=== PATIENT | female | born 1950 | race Caucasian/White ===

== ENCOUNTER 2018-01-18 05:57 | Day surgery (SDC) | payer MEDICARE, OTHER ==
[~2018-01-18] VITALS: Ht 167.6 cm; Wt 75.4 kg
[2018-01-18] MEDS ORDERED: LACTATED RINGERS 1,000 ML IV SCH (06:50)
[2018-01-18] MEDS ORDERED: ASPI-496 PO (07:01)
[2018-01-18] MEDS ORDERED: D-MA50PO PO (07:01)
[2018-01-18] MEDS ORDERED: TURM1POW PO (07:01)
[2018-01-18] MEDS ORDERED: ROSU10TA PO (07:01)
[2018-01-18] MEDS ORDERED: FISH1CAP PO (07:01)
[2018-01-18] MEDS ORDERED: CALC200T3 PO (07:01)
[2018-01-18] MEDS ORDERED: ASCO500C10 PO (07:01)
[2018-01-18] MEDS ORDERED: ALPH300C PO (07:01)
[2018-01-18] MEDS ORDERED: CHOL2400 PO (07:01)
[2018-01-18 07:03] VITALS: BP 165/87
[2018-01-18 07:53] LABS: BASOPHILS # (AUTO) 0.03 x10^3/uL (0-0.1); BASOPHILS % (AUTO) 1 % (0-1); EOSINOPHILS % (AUTO) 2 % (1-7); LYMPHOCYTES # (AUTO) 1.04 x10^3/uL (1-3.4); LYMPHOCYTES % (AUTO) 19 % (22-44); MD NO; MEAN CORPUSCULAR HEMOGLOBIN 30.6 pg (27.0-34.8); MEAN CORPUSCULAR HGB CONC 33.7 g/dL (32.4-35.8); MEAN CORPUSCULAR VOLUME 90.5 fL (80-100); MEAN PLATELET VOLUME 9.7 fL (7.4-10.4); MONOCYTES % (AUTO) 7 % (2-9); NEUTROPHILS # (AUTO) 3.93 x10^3/uL (1.8-6.8); NEUTROPHILS % (AUTO) 72 % (42-75); PLATELET COUNT 223 x10^3/uL (130-400); RED BLOOD COUNT 4.65 x10^6/uL (3.82-5.3); RED CELL DISTRIBUTION WIDTH 13.3 % (9.6-15.2)
[2018-01-18 08:02] LABS: ANION GAP 6 mmol/L (5-15); CALCIUM 9.2 mg/dL (8.5-10.1); CHLORIDE 111 mmol/L (98-107); CREATININE 0.66 mg/dL (0.55-1.02)
[2018-01-18] MEDS ORDERED: ONDANSETRON 2MG/ML, 2ML ONE (08:04)
[2018-01-18] MEDS ORDERED: PROPOFOL 10 MG/ML, 20ML ONE (08:04)
[2018-01-18] MEDS ORDERED: LIDOCAINE-MPF 2% ,5ML ONE (08:04)
[2018-01-18] MEDS ORDERED: CHLORHEXIDINE 15 ML UDC ONE (08:23)
[2018-01-18] MEDS ORDERED: OXYcodone 5 MG/5 ML ORAL.SOL UDC PO PRN (09:00)
[2018-01-18] MEDS ORDERED: ONDANSETRON ODT 8 MG PO PRN (09:00)
[2018-01-18] MEDS ORDERED: MIDAZOLAM 1 MG/ML, 2ML IV PRN (09:00)
[2018-01-18] MEDS ORDERED: FENTANYL PF 100 MCG/2ML IV PRN (09:00)
[2018-01-18] MEDS ORDERED: hydrALAzine 20 MG/ML, 1ML IV PRN (09:00)
[2018-01-18] MEDS ORDERED: HYDROmorphone 1 MG/ML, 1ML IV PRN (09:00)
[2018-01-18] MEDS ORDERED: LORazepam 2 MG/ML, 1ML IVPush PRN (09:00)
[2018-01-18] MEDS ORDERED: MEPERIDINE/PF 25MG/0.5ML IVPush PRN (09:00)
[2018-01-18] MEDS ORDERED: PROMETHAZINE 25 MG/ML, 1ML IV PRN (09:00)
[2018-01-18] MEDS ORDERED: ALBUTEROL SULFATE 2.5 MG/3 ML NPPB PRN (09:00)
[2018-01-18] MEDS ORDERED: LABETALOL 5MG/ML, 20ML IV PRN (09:00)
[2018-01-18] MEDS ORDERED: PROMETHAZINE 12.5 MG SUPP PR PRN (09:00)
[2018-01-18] MEDS ORDERED: ONDANSETRON 2MG/ML, 2ML IV PRN (09:00)
[2018-01-19] MEDS ORDERED: TRAM50TA2 PO (14:22)
[2018-01-19] MEDS ORDERED: CEFD300C37 PO (14:22)
== END 2018-01-18 10:10 | disposition home or self-care (01) ==
LOC: OUT 05:57
PROVIDERS: ATTEND Internal Medicine Gastroenterology
DX: C82.83 Other types of follicular lymphoma, intra-abdominal lymph nodes (principal); E78.5 Hyperlipidemia, unspecified; Z98.890 Other specified postprocedural states; Z79.82 Long term (current) use of aspirin; Z79.899 Other long term (current) drug therapy; Z87.440 Personal history of urinary (tract) infections
CPT/HCPCS: 36415; 43238; 80048; 85025; 88172; 88173; 88177; 88305; 93005; J2405; J2704; J3490; J7120; 88341; 88342; 88360; G0461

== ENCOUNTER 2018-01-18 14:48 | Inpatient (IN) | payer MEDICARE, OTHER ==
[~2018-01-18] VITALS: Ht 170.2 cm; Wt 77.6 kg
[~2018-01-18 14:48] MED LIST: ALPH300C PO; ASCO500C10 PO; ASPI-496 PO; CALC200T3 PO; CHOL2400 PO; D-MA50PO PO; FISH1CAP PO; ROSU10TA PO; TURM1POW PO
[2018-01-18] MEDS ORDERED: ONDANSETRON 2MG/ML, 2ML IVPush ONE ×2 (15:00→16:30)
[2018-01-18] MEDS ORDERED: SODIUM CHLORIDE FLUSH 10ML SYR IVF ONE (15:00)
[2018-01-18] MEDS ORDERED: SODIUM CHLORIDE 0.9% 1,000ML IVBOLUS ONE (15:30)
[2018-01-18 15:31] LABS: CULTURE INDICATED? YES; MICROSCOPIC INDICATED
[2018-01-18 15:37] LABS: MEAN CORPUSCULAR HEMOGLOBIN 30.2 pg (27.0-34.8); MEAN CORPUSCULAR HGB CONC 33.4 g/dL (32.4-35.8); MEAN CORPUSCULAR VOLUME 90.4 fL (80-100); MEAN PLATELET VOLUME 9.6 fL (7.4-10.4); PLATELET COUNT 235 x10^3/uL (130-400); RED BLOOD COUNT 4.46 x10^6/uL (3.82-5.3); RED CELL DISTRIBUTION WIDTH 13.6 % (9.6-15.2)
[2018-01-18 15:38] LABS: ALANINE AMINOTRANSFERASE 31 U/L (12-78); ALBUMIN 4.4 g/dL (3.4-5.0); ANION GAP 12 mmol/L (5-15); CALCIUM 9.5 mg/dL (8.5-10.1); CHLORIDE 107 mmol/L (98-107); CREATININE 0.73 mg/dL (0.55-1.02)
[2018-01-18] MEDS ORDERED: HYDROmorphone 2 MG/ML, 1ML ONE (15:39)
[2018-01-18 15:40] LABS: ALKALINE PHOSPHATASE 60 U/L (45-117); BILIRUBIN,TOTAL 0.8 mg/dL (0.2-1.0); TOTAL PROTEIN 7.8 g/dL (6.4-8.2)
[2018-01-18] MEDS ORDERED: ONDANSETRON 2MG/ML, 2ML ONE (15:41)
[2018-01-18] MEDS ORDERED: HYDROmorphone 1 MG/ML, 1ML IV ONE (16:00)
[2018-01-18] MEDS ORDERED: OMNIPAQUE 350 MG/ML, 100ML BOTTLE ONE (16:09)
[2018-01-18 16:15] LABS: MD SCAN
[2018-01-18] MEDS ORDERED: ONDANSETRON ODT 4 MG PO PRN (18:30)
[2018-01-18] MEDS ORDERED: ONDANSETRON 2MG/ML, 2ML IVPush PRN (18:30)
[2018-01-18 18:35] VITALS: BP 143/85
[2018-01-18] MEDS ORDERED: MORPHINE SULFATE 4 MG/ML, 1ML IVPush PRN (19:00)
[2018-01-18] MEDS ORDERED: CEFTRIAXONE 2,000 MG in DEXTROSE 5% 50 ML IV SCH (19:00)
[2018-01-18 19:15] VITALS: BP 143/85
[2018-01-18] MEDS ORDERED: POTASSIUM CHLORIDE 20 MEQ TAB.ER.PRT PO ONE (19:30)
[2018-01-18] MEDS: SODIUM CHLORIDE 0.9% 1,000 ML IV SCH (20:23)
[2018-01-18 21:28] LABS: INTERNATIONAL NORMALIZED RATIO 1.02 (0.93-1.1); PROTHROMBIN TIME 10.5 Seconds (9.6-11.5)
[2018-01-19 01:04] VITALS: BP 117/65
[2018-01-19] MEDS: SODIUM CHLORIDE 0.9% 1,000 ML IV SCH (04:53)
[2018-01-19 05:26] LABS: ANION GAP 5 mmol/L (5-15); CALCIUM 8.7 mg/dL (8.5-10.1); CHLORIDE 110 mmol/L (98-107)
[2018-01-19 05:27] LABS: MEAN CORPUSCULAR HEMOGLOBIN 31.5 pg (27.0-34.8); MEAN CORPUSCULAR HGB CONC 34.3 g/dL (32.4-35.8); MEAN CORPUSCULAR VOLUME 91.8 fL (80-100); MEAN PLATELET VOLUME 10.3 fL (7.4-10.4); PLATELET COUNT 215 x10^3/uL (130-400); RED BLOOD COUNT 3.86 x10^6/uL (3.82-5.3); RED CELL DISTRIBUTION WIDTH 13.6 % (9.6-15.2)
[2018-01-19 05:28] LABS: CREATININE 0.68 mg/dL (0.55-1.02)
[2018-01-19 05:59] LABS: BASOPHILS # (AUTO) 0.03 x10^3/uL (0-0.1); BASOPHILS % (AUTO) 0 % (0-1); EOSINOPHILS % (AUTO) 0 % (1-7); LYMPHOCYTES # (AUTO) 1.26 x10^3/uL (1-3.4); LYMPHOCYTES % (AUTO) 12 % (22-44); MD SCAN; MONOCYTES % (AUTO) 7 % (2-9); NEUTROPHILS # (AUTO) 8.77 x10^3/uL (1.8-6.8); NEUTROPHILS % (AUTO) 81 % (42-75)
[2018-01-19 08:05] VITALS: BP 114/67
[2018-01-19 14:07] VITALS: BP 118/64
[2018-01-19] MEDS ORDERED: TRAM50TA2 PO (14:22)
[2018-01-19] MEDS ORDERED: CEFD300C37 PO (14:22)
== END 2018-01-19 17:56 | disposition home or self-care (01) | DRG 920 ==
LOC: ED 16:07 → EDIP 17:32 → 3NW 18:32
PROVIDERS: ADMIT Internal Medicine; ATTEND Internal Medicine
DX: L76.22 Postprocedural hemorrhage of skin and subcutaneous tissue following other procedure (principal); N39.0 Urinary tract infection, site not specified; C85.10 Unspecified B-cell lymphoma, unspecified site; E87.2 Acidosis; R59.0 Localized enlarged lymph nodes; E78.00 Pure hypercholesterolemia, unspecified; E87.6 Hypokalemia; R73.9 Hyperglycemia, unspecified; E78.5 Hyperlipidemia, unspecified; Z82.49 Family history of ischemic heart disease and other diseases of the circulatory system; Z90.89 Acquired absence of other organs; Y92.9 Unspecified place or not applicable; Y83.9 Surgical procedure, unspecified as the cause of abnormal reaction of the patient, or of later complication, without mention of misadventure at the time of the procedure
CPT/HCPCS: 36415; 71045; 74177; 80048; 80053; 81001; 83690; 83735; 84100; 85018; 85025; 85610; 87086; 96361; 96374; 96375; 96376; J0696; J1170; J2405; Q9967; J7030

== ENCOUNTER 2018-02-22 09:27 | Observation (INO) | payer MEDICARE, OTHER ==
[~2018-02-22] VITALS: Ht 167.6 cm; Wt 75.2 kg
[~2018-02-22 09:27] MED LIST changes: +CEFD300C37 PO; +TRAM50TA2 PO
[2018-02-22] MEDS: MORPHINE SULFATE 4 MG/ML, 1ML IVPush PRN ×3 (11:37→14:03)
[2018-02-22 11:54] LABS: MEAN CORPUSCULAR HEMOGLOBIN 30.2 pg (27.0-34.8); MEAN CORPUSCULAR HGB CONC 33.6 g/dL (32.4-35.8); MEAN PLATELET VOLUME 9.1 fL (7.4-10.4); PLATELET COUNT 258 x10^3/uL (130-400); RED BLOOD COUNT 4.15 x10^6/uL (3.82-5.3); RED CELL DISTRIBUTION WIDTH 13.6 % (9.6-15.2)
[2018-02-22 11:57] LABS: ALANINE AMINOTRANSFERASE 38 U/L (12-78); ANION GAP 9 mmol/L (5-15); CALCIUM 9.3 mg/dL (8.5-10.1); CHLORIDE 106 mmol/L (98-107); CREATININE 0.79 mg/dL (0.55-1.02)
[2018-02-22 12:01] LABS: ALKALINE PHOSPHATASE 91 U/L (45-117); BILIRUBIN,TOTAL 0.5 mg/dL (0.2-1.0); TOTAL PROTEIN 7.3 g/dL (6.4-8.2); TROPONIN I < 0.015 ng/mL (0.000-0.045)
[2018-02-22 12:18] LABS: MD YES
[2018-02-22 12:23] LABS: BAND#(MANUAL) 4.09 x10^3/uL; BANDS%(MANUAL) 12 % (0-7); LYMPH#(MANUAL) 1.71 x10^3/uL (1-3.4); LYMPHS% (MANUAL) 5 % (22-44); METAMYELOCYTES# (MANUAL) 0.34 x10^3/uL (0-0); METAMYELOCYTES% (MANUAL) 1 % (0-1); MONOS#(MANUAL) 0.68 x10^3/uL (0.3-2.7); MONOS% (MANUAL) 2 % (2-9); SEG#(MANUAL) 27.28 x10^3/uL (1.8-6.8); SEGS% (MANUAL) 80 % (42-75)
[2018-02-22 12:24] LABS: <PLATELET ESTIMATE> ADEQUATE; <RBC MORPHOLOGY> NORMAL; LARGE PLATELETS 1+
[2018-02-22] MEDS ORDERED: MORPHINE SULFATE 4 MG/ML, 1ML ONE ×2 (12:36→14:00)
[2018-02-22] MEDS ORDERED: OMNIPAQUE 350 MG/ML, 100ML BOTTLE ONE (13:57)
[2018-02-22] MEDS ORDERED: ONDANSETRON 2MG/ML, 2ML IVPush PRN (15:00)
[2018-02-22] MEDS ORDERED: ENALAPRILAT 1.25 MG/ML, 2ML IVPush PRN (15:00)
[2018-02-22] MEDS ORDERED: HYDROcodone/APAP 5/325 TABLET PO PRN (15:00)
[2018-02-22] MEDS ORDERED: LIDODERM 5% PATCH TD PRN (15:00)
[2018-02-22] MEDS ORDERED: MORPHINE SULFATE 4 MG/ML, 1ML IVPush PRN (15:00)
[2018-02-22] MEDS ORDERED: METHOCARBAMOL 500 MG TABLET PO PRN (15:00)
[2018-02-22] MEDS ORDERED: ACETAMINOPHEN 325 MG TABLET PO PRN (15:00)
[2018-02-22] MEDS ORDERED: hydrALAzine 20 MG/ML, 1ML IVPush PRN (15:00)
[2018-02-22] MEDS ORDERED: ENOXAPARIN 40 MG/0.4 ML SQ SCH (15:00)
[2018-02-22] MEDS ORDERED: BISACODYL 10 MG SUPP PR PRN (15:00)
[2018-02-22 15:34] VITALS: BP 146/79
[2018-02-22] MEDS: ONDANSETRON ODT 4 MG PO PRN (16:08)
[2018-02-22] MEDS: SODIUM CHLORIDE 0.9% 1,000 ML IV SCH ×2 (16:09→22:58)
[2018-02-22 17:40] LABS: MICROSCOPIC INDICATED
[2018-02-22 18:02] LABS: TROPONIN I < 0.015 ng/mL (0.000-0.045)
[2018-02-22 18:08] LABS: CULTURE INDICATED? NO
[2018-02-22 21:38] VITALS: BP 163/91
[2018-02-22] MEDS: FAMOTIDINE 20 MG TABLET PO SCH (21:43)
[2018-02-22] MEDS: DOCUSATE 100 MG CAPSULE PO SCH (21:43)
[2018-02-22 23:53] LABS: TROPONIN I < 0.015 ng/mL (0.000-0.045)
[2018-02-23 00:59] VITALS: BP 148/81
[2018-02-23 05:42] LABS: MEAN CORPUSCULAR HEMOGLOBIN 30.5 pg (27.0-34.8); MEAN CORPUSCULAR HGB CONC 33.7 g/dL (32.4-35.8); MEAN CORPUSCULAR VOLUME 90.6 fL (80-100); MEAN PLATELET VOLUME 8.7 fL (7.4-10.4); PLATELET COUNT 233 x10^3/uL (130-400); RED BLOOD COUNT 3.79 x10^6/uL (3.82-5.3)
[2018-02-23 05:48] LABS: ALBUMIN 3.6 g/dL (3.4-5.0); ANION GAP 9 mmol/L (5-15); CALCIUM 8.5 mg/dL (8.5-10.1); CHLORIDE 105 mmol/L (98-107)
[2018-02-23] MEDS: SODIUM CHLORIDE 0.9% 1,000 ML IV SCH (05:51)
[2018-02-23 05:52] LABS: ALANINE AMINOTRANSFERASE 34 U/L (12-78); ALKALINE PHOSPHATASE 96 U/L (45-117); BILIRUBIN,TOTAL 0.7 mg/dL (0.2-1.0); CHOL/HDL RATIO 2.8; CHOLESTEROL, TOTAL 121 mg/dL (140-239); CREATININE 0.57 mg/dL (0.55-1.02); HDL CHOL % 36 % (28-40); HDL CHOLESTEROL (DIRECT) 44 mg/dL (40-60); LDL CHOLESTEROL,CALCULATED 49 mg/dL (54-169); LDL/HDL RATIO 1.1 (0.5-3.0); TOTAL PROTEIN 6.8 g/dL (6.4-8.2); TRIGLYCERIDES 138 mg/dL (50-200); VLDL CHOLESTEROL 28 mg/dL (0-25)
[2018-02-23 06:19] LABS: MD YES
[2018-02-23 06:21] LABS: <RBC MORPHOLOGY> NORMAL; BAND#(MANUAL) 6.03 x10^3/uL; BANDS%(MANUAL) 16 % (0-7); LYMPH#(MANUAL) 0.75 x10^3/uL (1-3.4); LYMPHS% (MANUAL) 2 % (22-44); SEG#(MANUAL) 30.91 x10^3/uL (1.8-6.8); SEGS% (MANUAL) 82 % (42-75)
[2018-02-23 06:22] LABS: <PLATELET ESTIMATE> ADEQUATE; LARGE PLATELETS 1+
[2018-02-23] MEDS: FAMOTIDINE 20 MG TABLET PO SCH (08:15)
[2018-02-23] MEDS: DOCUSATE 100 MG CAPSULE PO SCH (08:15)
[2018-02-23] MEDS ORDERED: REGADENOSON 0.4 MG/5 ML SYRINGE ONE (08:20)
[2018-02-23] MEDS: ONDANSETRON ODT 4 MG PO PRN (08:21)
[2018-02-23 08:33] VITALS: BP 171/76
[2018-02-23] MEDS ORDERED: POLYETHYLENE GLYCOL 17 GM PACKET PO SCH (09:00)
[2018-02-23 11:55] VITALS: BP 166/80
[2018-02-23] MEDS ORDERED: HYDR-3240 PO (13:45)
== END 2018-02-23 14:50 | disposition home or self-care (01) ==
LOC: ED 10:46 → INTOOBSV 13:57 → EDIP 13:57 → 5SO 15:44 → DCLOUNGE 02-23 14:39
PROVIDERS: ADMIT Internal Medicine; ATTEND Internal Medicine
DX: R07.89 Other chest pain (principal); C85.90 Non-Hodgkin lymphoma, unspecified, unspecified site; D72.829 Elevated white blood cell count, unspecified; E78.5 Hyperlipidemia, unspecified; I10 Essential (primary) hypertension; Z87.440 Personal history of urinary (tract) infections; Z92.21 Personal history of antineoplastic chemotherapy
CPT/HCPCS: 0399T; 36415; 71045; 71275; 78452; 80053; 80061; 81001; 83735; 84100; 84484; 84550; 85025; 93005; 93017; 93306; 96372; 96374; 96375; 96376; 99285; A9502; C9898; G0378; J1650; J2405; J2785; J7030; Q0162; Q9967

== ENCOUNTER 2018-08-23 06:26 | Day surgery (SDC) | payer MEDICARE, OTHER ==
[~2018-08-23] VITALS: Ht 170.2 cm; Wt 77.1 kg
[~2018-08-23 06:26] MED LIST changes: +HYDR-3240 PO; -ROSU10TA PO; +ROSU10TA2 PO
[2018-08-23 07:18] VITALS: BP 124/82
[2018-08-23] MEDS ORDERED: SODIUM CHLORIDE 0.9% 1,000 ML IV SCH (07:22)
[2018-08-23] MEDS ORDERED: LIDOCAINE 1%, 20ML ONE (07:28)
[2018-08-23] MEDS ORDERED: NALOXONE 1 MG/ML, 2ML ONE (07:29)
[2018-08-23] MEDS ORDERED: FENTANYL PF 100 MCG/2ML ONE (07:29)
[2018-08-23] MEDS ORDERED: FLUMAZENIL 0.1 MG/1 ML, 5ML ONE (07:29)
[2018-08-23] MEDS ORDERED: MIDAZOLAM 1 MG/ML, 5ML ONE ×2 (07:29)
== END 2018-08-23 09:45 | disposition home or self-care (01) ==
LOC: OUT 06:26
PROVIDERS: ATTEND Internal Medicine Hematology & Oncology
DX: Z45.2 Encounter for adjustment and management of vascular access device (principal); C82.50 Diffuse follicle center lymphoma, unspecified site; I10 Essential (primary) hypertension
CPT/HCPCS: 36590; 77001; 99156; 99157; J2250; J3010; J3490; J7030; J2310